=== PATIENT | female | born 1975 | race Caucasian/White ===

== ENCOUNTER 2020-12-25 12:15 | Outpatient (CLI) | payer BC ==
[2020-12-25 14:35] LABS: BHCG - Serum Negative (NEGATIVE); Pregs Control Background? CLEAR/WHITE (CLR/WHITE); Pregs Control Bar Appear? YES (CONTROL BAR)
[2020-12-25 14:39] LABS: Hemoglobin 13.2 g/dL (12.0-15.5); Mean Corpuscular HGB CONC 31.7 g/dL (32.0-36.0); Mean Corpuscular Hemoglobin 30.3 pg (27.0-33.0); Mean Corpuscular Volume 95.6 fl (81.6-98.3); Mean Platelet Volume 11.2 fl (7.4-10.4); Platelet Count 217 10x3/uL (150-450); RBC Distribution Width 13.3 % (11.5-14.5); Red Blood Cell (RBC) Count 4.35 10x6/uL (3.90-5.03); White Blood Cell (WBC) Count 5.6 10x3/uL (3.5-10.5)
[2020-12-26 11:58] LABS: SARS-CoV-2 PCR by NAA Not Detected (NotDetected)
== END 2020-12-25 12:16 | disposition home or self-care (01) ==
LOC: CSHLAB 12:15
PROVIDERS: ATTEND Obstetrics & Gynecology
DX: Z01.812 Encounter for preprocedural laboratory examination (principal); Z20.822 Contact with and (suspected) exposure to COVID-19
CPT/HCPCS: 84703; 85027; 86850; 86900; 86901; U0003; U0005

== ENCOUNTER 2021-10-08 08:17 | Outpatient (CLI) | payer BC | END 2021-10-08 08:18 | disposition home or self-care (01) | LOC: CSHMAMMO 08:17 | PROVIDERS: ATTEND Obstetrics & Gynecology | DX: Z12.31 Encounter for screening mammogram for malignant neoplasm of breast (principal); Z80.3 Family history of malignant neoplasm of breast | CPT/HCPCS: 77063; 77067 ==

== ENCOUNTER 2022-05-01 13:12 | Outpatient (CLI) | payer BC ==
[2022-05-01] MEDS ORDERED: Iopamidol 300 61% 100 ML VIAL FS ONE (14:43)
== END 2022-05-01 13:13 | disposition home or self-care (01) ==
LOC: CSHCT 13:12
PROVIDERS: ATTEND Nurse Practitioner Family
DX: R10.32 Left lower quadrant pain (principal); K57.32 Diverticulitis of large intestine without perforation or abscess without bleeding; K76.89 Other specified diseases of liver; K80.20 Calculus of gallbladder without cholecystitis without obstruction; Z90.710 Acquired absence of both cervix and uterus
CPT/HCPCS: 74178; Q9967

== ENCOUNTER 2023-06-09 12:09 | Outpatient (CLI) | payer BC | END 2023-06-09 12:10 | disposition home or self-care (01) | LOC: CSHMAMMO 12:09 | PROVIDERS: ATTEND Family Medicine | DX: Z12.31 Encounter for screening mammogram for malignant neoplasm of breast (principal); Z80.3 Family history of malignant neoplasm of breast | CPT/HCPCS: 77063; 77067 ==